=== PATIENT | male | born 2000 | race Caucasian/White ===

== ENCOUNTER 2023-10-23 21:25 | Emergency (ER) | payer BC, OTHER ==
[2023-10-23] MEDS: Famotidine 20 MG Tab PO ONE (21:41)
[2023-10-23] MEDS: predniSONE 20 MG Tab PO ONE (21:41)
[2023-10-23] MEDS: EPINEPHrine 1 MG/1 ML Amp IM ONE (21:41)
[2023-10-23] MEDS: diphenhydrAMINE 50 MG Cap PO ONE (21:41)
== END 2023-10-23 23:13 | disposition home or self-care (01) ==
LOC: MW.ED 21:25
DX: J02.9 Acute pharyngitis, unspecified (principal); T78.40XA Allergy, unspecified, initial encounter; Z91.013 Allergy to seafood; Z88.1 Allergy status to other antibiotic agents; Z79.51 Long term (current) use of inhaled steroids; Z79.899 Other long term (current) drug therapy
CPT/HCPCS: 87651; 96372; 99283; A9270; J0171